=== PATIENT | female | born 1975 ===

== ENCOUNTER 2019-06-20 21:40 | Emergency (ER) | payer OTHER, MEDICARE ==
[~2019-06-20] VITALS: Ht 165.1 cm; Wt 82.1 kg
[2019-06-20 21:42] VITALS: BP 166/99
== END 2019-06-21 00:11 | disposition home or self-care (01) ==
LOC: ED 23:15
DX: G89.29 Other chronic pain (principal); R10.11 Right upper quadrant pain; Z90.49 Acquired absence of other specified parts of digestive tract; Z90.710 Acquired absence of both cervix and uterus; Z90.721 Acquired absence of ovaries, unilateral
CPT/HCPCS: 36415; 74177; 80053; 81003; 83690; 85025; 99284; Q9967

== ENCOUNTER 2019-11-24 07:46 | Emergency (ER) | payer OTHER, MEDICARE ==
[~2019-11-24] VITALS: Ht 160 cm; Wt 77.8 kg
[~2019-11-24 07:46] MED LIST: ALPR1TAB2; DIAZ5TAB PO; LAMO150T3; LEVO75TA PO; MORP30TA81; OXYC-432 PO; OXYC10TA47; PHENERGAN; TRIA0.25
--- NOTE | 2019-11-24 08:03 | NUR ---
PT HERE WITH C/O RUQ PAIN, PT STATES "IT FEELS LIKE A GALLBLADDER ATTACK BUT I GOT THAT TAKEN OUT IN 1995." PT TEARFUL. PT DRESSED IN GOWN AND ATTACHED TO MONITOR. ROOM AIR, NAD, CALL LIGHT WITHIN REACH. SIDERAIL X [address]
[2019-11-24] MEDS ORDERED: DIPHENHYDRAMINE 25 MG CAPSULE ONE (08:16)
[2019-11-24] MEDS ORDERED: HALOPERIDOL 5 MG TABLET ONE (08:16)
[2019-11-24] MEDS ORDERED: DIPHENHYDRAMINE 25 MG CAPSULE PO ONE (08:30)
[2019-11-24] MEDS ORDERED: HALOPERIDOL 2 MG/ML ORAL SOL PO ONE (08:30)
[2019-11-24 09:00] LABS: MEAN CORPUSCULAR HEMOGLOBIN 30.2 pg (27.0-34.8); MEAN CORPUSCULAR HGB CONC 33.7 g/dL (32.4-35.8); MEAN CORPUSCULAR VOLUME 89.5 fL (80-100); MEAN PLATELET VOLUME 11.9 fL (7.4-10.4); PLATELET COUNT 132 x10^3/uL (130-400); RED BLOOD COUNT 4.99 x10^6/uL (3.82-5.3); RED CELL DISTRIBUTION WIDTH 12.9 % (9.6-15.2)
[2019-11-24 09:03] LABS: ALBUMIN 3.7 g/dL (3.4-5.0); ANION GAP 8 mmol/L (5-15); CALCIUM 8.3 mg/dL (8.5-10.1); CHLORIDE 109 mmol/L (98-107)
[2019-11-24 09:07] LABS: ALANINE AMINOTRANSFERASE 20 U/L (12-78); ALKALINE PHOSPHATASE 113 U/L (45-117); BILIRUBIN,TOTAL 0.6 mg/dL (0.2-1.0); CREATININE 0.72 mg/dL (0.55-1.02); TOTAL PROTEIN 7.5 g/dL (6.4-8.2)
[2019-11-24 09:25] LABS: BASOPHILS # (AUTO) 0.03 x10^3/uL (0-0.1); BASOPHILS % (AUTO) 1 % (0-1); EOSINOPHILS % (AUTO) 0 % (1-7); LYMPHOCYTES # (AUTO) 1.04 x10^3/uL (1-3.4); LYMPHOCYTES % (AUTO) 31 % (22-44); MD SCAN; MONOCYTES # (AUTO) 0.46 x10^3/uL (0.2-0.8); MONOCYTES % (AUTO) 14 % (2-9); NEUTROPHILS # (AUTO) 1.83 x10^3/uL (1.8-6.8); NEUTROPHILS % (AUTO) 54 % (42-75)
[2019-11-24] MEDS ORDERED: HALOPERIDOL 5 MG TABLET PO ONE (09:30)
[2019-11-24 09:47] LABS: MICROSCOPIC INDICATED
[2019-11-24 09:48] LABS: CULTURE INDICATED? YES
--- NOTE | 2019-11-24 11:50 | NUR ---
BREAK RN FOR PRIMARY RN JANEL. RECEIVED BEDSIDE REPORT FROM JANEL MIX. CARE ASSUMED FOR DISCHARGE ONLY. CHART RECEIVED FROM ERP. TO DISCHARGE PT.
[2019-11-24 11:55] VITALS: BP 126/94
== END 2019-11-24 11:59 | disposition home or self-care (01) ==
LOC: ED 11:40
DX: R10.84 Generalized abdominal pain (principal); R11.2 Nausea with vomiting, unspecified; Z90.49 Acquired absence of other specified parts of digestive tract; Z90.710 Acquired absence of both cervix and uterus; Z87.891 Personal history of nicotine dependence
CPT/HCPCS: 36415; 74021; 80053; 81001; 83690; 85025; 87077; 87086; 99284; Q0163; 87186